=== PATIENT | male | born 1975 | race Caucasian/White ===

== ENCOUNTER 2016-09-16 09:53 | Emergency (ER) | payer SELFPAY ==
[2016-09-16] MEDS ORDERED: LIDOCAINE 1% 10 ML VIAL INJ ONE ×2 (10:09→10:55)
[2016-09-16 10:21] VITALS: BP 137/85; TEMP 96.7; O2SAT 98
--- NOTE | 2016-09-16 10:35 | RAD ---
EXAM DESCRIPTION: Foot,Left 2 Views CLINICAL HISTORY: 41 years, Male, distal plantar midfoot infxn ?foreign body? COMPARISON: None TECHNIQUE: AP/lateral of the left foot FINDINGS: There is no bone, joint, or soft tissue abnormality observed. There is no radiopaque foreign body. IMPRESSION: Negative Electronically signed by: Kyle George MD 09/16/2016 10:35 AM CDT
--- NOTE | 2016-09-16 10:42 | ED.PDOC ---
History of Present Illness - General Chief Complaint: Skin/Abrasion/Tear Stated Complaint: WOUND ON FOOT Time Seen by Provider: 09/16/16 09:54 Source: patient Exam Limitations: no limitations - History of Present Illness Initial Comments: the patient is a 41-year-old male presenting to the emergency room secondary to a small abscess formation on the plantar aspect of his left foot over the third metatarsal pad. It has been present for one week with increasing pain and erythema. No definite foreign body noted. No previous infections. He is not diabetic. He does wear work boots all day. No fevers. No drainage from the site. Timing/Duration: 1 week Severity: mild Improving Factors: nothing Worsening Factors: movement Associated Symptoms: denies symptoms Allergies/Adverse Reactions: Allergies NO KNOWN ALLERGY Allergy (Verified 10/28/15 04:47) Home Medications: Ambulatory Orders Sulfa/Trimeth 800/160 (Ds) Tab [Bactrim DS Tab] 1 ea PO BID #14 tab 09/16/16 Review of Systems - Review of Systems Constitutional: States: no symptoms reported EENTM: States: no symptoms reported Respiratory: States: no symptoms reported Cardiology: States: no symptoms reported Gastrointestinal/Abdominal: States: no symptoms reported Genitourinary: States: no symptoms reported Musculoskeletal: States: no symptoms reported Skin: States: see HPI Neurological: States: no symptoms reported Endocrine: States: no symptoms reported All other Systems: No Change from Baseline Past Medical History (General) - Patient Medical History Hx Seizures: No Hx Stroke: No Hx Dementia: No Hx Asthma: No Hx of COPD: No Hx Cardiac Disorders: No Hx Congestive Heart Failure: No Hx Pacemaker: No Hx Hypertension: No Hx Thyroid Disease: No Hx Diabetes: No Hx Gastroesophageal Reflux: No Hx Renal Disease: No Hx Cancer: No Hx of HIV: No Hx Hepatitis C: No Hx MRSA: Yes - Wound 2016 MRSA Source:: Wound - Vaccination History Hx Tetanus, Diphtheria Vaccination: Yes Hx Influenza Vaccination: No Hx Pneumococcal Vaccination: No Immunizations Up to Date: No - Social History Hx Tobacco Use: No Hx Chewing Tobacco Use: No Hx Alcohol Use: Yes - OCC Hx Substance Use: No - DENIES Hx Substance Use Treatment: No Hx Depression: No Hx Physical Abuse: No Hx Emotional Abuse: No Hx Suspected Abuse: No - Female History Patient : No Family Medical History - Family History Father Family History: Unknown Living Status: Still Living Hx Family Asthma: No Hx Family Congestive Heart Failure: No Hx Family Hypertension: No Hx Cardiac Disease: Yes Hx Family Diabetes: Yes Physical Exam - Physical Exam General Appearance: Alert, Comfortable, No apparent distress Eye Exam: bilateral normal Ears, Nose, Throat: hearing grossly normal, normal ENT inspection Neck: full range of motion Respiratory: no respiratory distress, no accessory muscle use Cardiovascular/Chest: normal peripheral pulses, no edema Peripheral Pulses: dorsalis pedis,right: 2+, dorsalis pedis,left: 2+, posterior tibialis,right: 2+, posterior tibialis,left: 2+ Rectal Exam: deferred Extremity: normal range of motion, no pedal edema, no calf tenderness, normal capillary refill, other - access to the plantar aspect of the left foot as described above Neurologic: no motor/sensory deficits, alert, normal mood/affect, oriented x 3 Skin Exam: normal color Comments: Vital Signs - 24 hr 09/16/16 10:17 Temperature 96.7 F L Pulse Rate [ 60 MONITOR] Respiratory 18 Rate Blood Pressure 137/85 [Left Arm] O2 Sat by Pulse 98 Oximetry Progress - Progress Progress: 09/16/16 10:42 the patient is a 41-year-old male presenting with a small abscess to the plantar aspect of his left foot. He does have mild surrounding cellulitis. X-ray shows no evidence of fracture, osteomyelitis, or foreign body. No free air. Risk and benefits of incision and drainage explained. Patient agrees to proceed. Wound is cleaned with hydrogen peroxide. 11 blade scalpel is used to make a 1 cm x 1 cm unroofing of the abscess. 1 cc of pus was obtained. Culture is performed. Exploration of the cavity shows no evidence of foreign body. Surrounding callus debrided with scalpel as well. Dressing was applied. The patient was given a dose of Bactrim and Rocephin. He will be placed on Bactrim twice daily for 7 days. He needs to take this medication with food. He needs to keep well hydrated. He needs to wash the wound at least twice daily with an antibacterial soap. he needs to keep the wound covered with a Band-Aid and triple antibiotic ointment. He needs to follow up with his primary care doctor on Thursday for reevaluation and culture results. Departure - Departure Clinical Impression: Abscess ICD-10 Supporting Text: eft foot, initial evaluation, with incision and drainage Disposition: Discharge to Home or Self Care Departure Forms: ED Discharge - Pt. Copy, Patient Portal Self Enrollment Instructions: DI for Skin Abscess Diet: regular diet Activity: increase activity as tolerated Prescriptions: Sulfa/Trimeth 800/160 (Ds) Tab [Bactrim DS Tab] 1 ea PO BID #14 tab Home Medications: Ambulatory Orders Sulfa/Trimeth 800/160 (Ds) Tab [Bactrim DS Tab] 1 ea PO BID #14 tab 09/16/16 Additional Instructions: the patient is a 41-year-old male presenting with a small abscess to the plantar aspect of his left foot. He does have mild surrounding cellulitis. X-ray shows no evidence of fracture, osteomyelitis, or foreign body. No free air. Wound is cleaned with hydrogen peroxide. 11 blade scalpel is used to make a 1 cm x 1 cm unroofing of the abscess. 1 cc of pus was obtained. Culture is performed. Exploration of the cavity shows no evidence of foreign body. Surrounding callus debrided with scalpel as well. Dressing was applied. The patient was given a dose of Bactrim and Rocephin. He will be placed on Bactrim twice daily for 7 days. He needs to take this medication with food. He needs to keep well hydrated. He needs to wash the wound at least twice daily with an antibacterial soap. he needs to keep the wound covered with a Band-Aid and triple antibiotic ointment. He needs to follow up with his primary care doctor on Thursday for reevaluation and culture results.
[2016-09-16] MEDS: cefTRIAXone SODIUM 1 GM VIAL IM ONE (10:57)
[2016-09-16] MEDS: SULFA/TRIMETH 800/160 (DS) TAB 1 EA TAB PO ONE (10:57)
[2016-09-16] MEDS ORDERED: NEOMYCIN-BACITRACIN-POLYMYXIN 0.9 GM UD TOP ONE (11:19)
== END 2016-09-16 11:24 | disposition home or self-care (01) ==
LOC: ER 09:53
DX: L02.612 Cutaneous abscess of left foot (principal); Z86.14 Personal history of Methicillin resistant Staphylococcus aureus infection
CPT/HCPCS: 73620; 87070; 87077; 87186; J0696

== ENCOUNTER 2016-09-17 08:31 | Emergency (ER) | payer SELFPAY ==
--- NOTE | 2016-09-17 09:07 | ED.PDOC ---
History of Present Illness - General Chief Complaint: Skin/Abrasion/Tear Stated Complaint: puncture wound Time Seen by Provider: 09/17/16 09:00 Source: patient Exam Limitations: no limitations - History of Present Illness Initial Comments: Edin Samuel 41 y/o male stated that he was in his friends house helping him to clean up one week ago felt stinging sensation on left foot noted little bleeding washed it with H2O2 and 3 days later noted gradual swelling got worse yesterday came to er incision and drainage done was given shot of rocephin and oral bactrim. stated adult Td upto date. Timing/Duration: week - one Severity: moderate Location: extremities Improving Factors: nothing Worsening Factors: movement Associated Symptoms: other - pain swelling left foot Allergies/Adverse Reactions: Allergies NO KNOWN ALLERGY Allergy (Verified 10/28/15 04:47) Home Medications: Ambulatory Orders Sulfa/Trimeth 800/160 (Ds) Tab [Bactrim DS Tab] 1 ea PO BID #14 tab 09/16/16 Ciprofloxacin [Cipro] 500 mg PO BID #20 tab 09/17/16 Review of Systems - Review of Systems Constitutional: States: no symptoms reported EENTM: States: no symptoms reported Respiratory: States: no symptoms reported Cardiology: States: no symptoms reported Gastrointestinal/Abdominal: States: no symptoms reported Genitourinary: States: no symptoms reported Musculoskeletal: States: no symptoms reported Skin: States: see HPI Neurological: States: no symptoms reported Endocrine: States: no symptoms reported Hematologic/Lymphatic: States: no symptoms reported Past Medical History (General) - Patient Medical History Hx Seizures: No Hx Stroke: No Hx Dementia: No Hx Asthma: No Hx of COPD: No Hx Cardiac Disorders: No Hx Congestive Heart Failure: No Hx Pacemaker: No Hx Hypertension: No Hx Thyroid Disease: No Hx Diabetes: No Hx Gastroesophageal Reflux: No Hx Renal Disease: No Hx Cancer: No Hx of HIV: No Hx Hepatitis C: No Hx MRSA: No MRSA Source:: Wound Surgical History: no surgical history - Vaccination History Hx Tetanus, Diphtheria Vaccination: Yes Hx Influenza Vaccination: No Hx Pneumococcal Vaccination: No Immunizations Up to Date: No - Social History Hx Tobacco Use: Yes Hx Chewing Tobacco Use: Yes Hx Alcohol Use: Yes Hx Substance Use: No Hx Substance Use Treatment: No Hx Depression: No Hx Physical Abuse: No Hx Emotional Abuse: No Hx Suspected Abuse: No - Activities of Daily Living Patient Lives Alone: No - family - Female History Patient is a Female of Child Bearing Age (10 -59 yrs old): No Patient : No Family Medical History - Family History Father Family History: No Known Living Status: Still Living Hx Family Asthma: No Hx Family Congestive Heart Failure: No Hx Family Hypertension: No Hx Cardiac Disease: Yes Hx Family Diabetes: Yes Physical Exam - Physical Exam General Appearance: Alert, No apparent distress Eyes, Ears, Nose, Throat Exam: PERRL/EOMI, normal ENT inspection, TMs normal Neck: non-tender, full range of motion, normal inspection Cardiovascular/Chest: normal peripheral pulses, regular rate, rhythm, no murmur Respiratory: chest non-tender, lungs clear, normal breath sounds, no respiratory distress Gastrointestinal/Abdominal: normal bowel sounds, non tender, soft, no organomegaly Back Exam: normal inspection, no CVA tenderness Extremity: normal range of motion, non-tender, normal inspection, no pedal edema , no calf tenderness Neurologic: alert, normal mood/affect, oriented x 3 Skin Exam: warm/dry, normal color Skin Problem Location: lower extremities - left foot Skin Character: erythema - left foot with area of i&D no drainage noted, swelling, tenderness Departure - Departure Clinical Impression: Infected puncture wound, Cellulitis of foot without toes, left Time of Disposition: 09:18 Disposition: Discharge to Home or Self Care Condition: Good Departure Forms: ED Discharge - Pt. Copy, Patient Portal Self Enrollment Instructions: DI for Puncture Wound Prescriptions: Ciprofloxacin [Cipro] 500 mg PO BID #20 tab Home Medications: Ambulatory Orders Sulfa/Trimeth 800/160 (Ds) Tab [Bactrim DS Tab] 1 ea PO BID #14 tab 09/16/16 Ciprofloxacin [Cipro] 500 mg PO BID #20 tab 09/17/16 Additional Instructions: Continue taking Bactrim DS with cipro Follow up with primary md 09/22 2016 patient to call for appoint ment,Elevate left leg 20 degrees at bedtime until better
[2016-09-17] MEDS ORDERED: levoFLOXacin 500MG IV 100 ML IVPB ONE (09:20)
[2016-09-17] MEDS: levoFLOXacin 500MG IV 500 MG in PREMIX BAG 1 BAG IVPB ONE (09:41)
[2016-09-17 09:56] VITALS: O2SAT 99
[2016-09-17] MEDS ORDERED: ACETAMINOPHEN 500 MG TAB ONE (10:38)
[2016-09-17] MEDS: ACETAMINOPHEN 500 MG TAB PO ONE (10:42)
[2016-09-17 10:47] VITALS: BP 127/59; TEMP 98.1
== END 2016-09-17 10:48 | disposition home or self-care (01) ==
LOC: ER 08:31
DX: S91.332A Puncture wound without foreign body, left foot, initial encounter (principal); L03.116 Cellulitis of left lower limb; Z87.891 Personal history of nicotine dependence; W26.9XXA Contact with unspecified sharp object(s), initial encounter

== ENCOUNTER 2017-02-16 08:53 | Inpatient (IN) | payer SELFPAY ==
[2017-02-16] MEDS ORDERED: ONDANSETRON ODT 8 MG TAB SL ONE (09:01)
[2017-02-16] MEDS ORDERED: ALUMINUM & MAGNESIUM HYDROXIDE 30 ML UD PO ONE (09:01)
[2017-02-16] MEDS ORDERED: SODIUM CHLORIDE 0.9% 1000ML 1,000 ML IVS ONE ×3 (09:01→23:30)
[2017-02-16] MEDS ORDERED: PANTOPRAZOLE SODIUM IV 40 MG VIAL IV ONE (09:01)
--- NOTE | 2017-02-16 09:32 | RAD ---
EXAM DESCRIPTION: Abdomen Series CLINICAL HISTORY: nv 2 day COMPARISON: None. FINDINGS: AP supine and upright views of the abdomen show a nonspecific, nonobstructive bowel gas pattern with no evidence for free intraperitoneal air. No air-filled dilated loops of small bowel are seen. No significant air-fluid levels are identified. No obvious organomegaly is seen. No abnormal calcifications are seen in the expected location of the renal collecting systems. Single view of the chest shows cardiac silhouette and pulmonary vasculature to be within normal limits. Lungs are normally aerated and clear. Linear radiopaque density overlying the left lower cardiac silhouette could represent residual wire from prior cardiac surgery versus overlapping density external to the patient. IMPRESSION: Nonspecific abdominal series Electronically signed by: Lucius Decker MD 02/16/2017 9:31 AM SITE RELIABILITY ENGINEER
[2017-02-16] MEDS ORDERED: POTASSIUM CHLORIDE INJ 40 MEQ 40 MEQ in SODIUM CHLORIDE 0.9% 250ML 250 ML IVPB ONE (10:09)
[2017-02-16] MEDS ORDERED: SODIUM CHLORIDE 0.9% 250ML 250 ML ONE ×2 (10:15→11:09)
[2017-02-16] MEDS ORDERED: POTASSIUM CHLORIDE 40mEq 20ML VIAL ONE (10:16)
[2017-02-16] MEDS ORDERED: AZITHROMYCIN IV 500 MG in SODIUM CHLORIDE 0.9% 250ML 250 ML IVPB ONE (10:31)
--- NOTE | 2017-02-16 10:34 | ED.PDOC ---
History of Present Illness - General Chief Complaint: GI Problem Stated Complaint: vomiting and diarrhea Time Seen by Provider: 02/16/17 08:59 Source: patient Exam Limitations: no limitations - History of Present Illness Initial Comments: The patient is a 41-year-old male presenting to the emergency room secondary to nausea vomiting and diarrhea for the last 48 hours. He has had a little bit of blood in the vomitus for the last 12-24 hours only. He has had some chest pain with throwing up only. He is feeling weak and tired. No previous episodes like this. no blood in the stool. This started when he went out camping this weekend. No syncope with questionable near syncope. No real abdominal pain except in the epigastric and left upper quadrant. No history of any liver dysfunction or pancreatitis. No history of any kidney stones or urinary tract infections. Severity: moderate Improving Factors: nothing Worsening Factors: eating Associated Symptoms: diaphoresis, loss of appetite, malaise, nausea/vomiting, weakness Allergies/Adverse Reactions: Allergies NO KNOWN ALLERGY Allergy (Verified 02/16/17 09:01) Home Medications: Ambulatory Orders NK [NK] 02/16/17 Review of Systems - Review of Systems Constitutional: States: malaise, weakness EENTM: States: no symptoms reported Respiratory: States: no symptoms reported Cardiology: States: no symptoms reported Gastrointestinal/Abdominal: States: see HPI Genitourinary: States: no symptoms reported Musculoskeletal: States: no symptoms reported Skin: States: no symptoms reported Neurological: States: no symptoms reported Endocrine: States: no symptoms reported All other Systems: No Change from Baseline Past Medical History (General) - Patient Medical History Hx Seizures: No Hx Stroke: No Hx Dementia: No Hx Asthma: No Hx of COPD: No Hx Cardiac Disorders: No Hx Congestive Heart Failure: No Hx Pacemaker: No Hx Hypertension: No Hx Thyroid Disease: No Hx Diabetes: No Hx Gastroesophageal Reflux: No Hx Renal Disease: No Hx Cancer: No Hx of HIV: No Hx Hepatitis C: No Hx MRSA: No MRSA Source:: Wound Surgical History: other - Vaccination History Hx Tetanus, Diphtheria Vaccination: Yes Hx Influenza Vaccination: No Hx Pneumococcal Vaccination: No - Social History Hx Tobacco Use: Yes Hx Chewing Tobacco Use: Yes Hx Alcohol Use: Yes Hx Substance Use: No Hx Substance Use Treatment: No Hx Depression: No Hx Physical Abuse: No Hx Emotional Abuse: No Hx Suspected Abuse: No - Female History Patient : No Family Medical History - Family History Father Family History: No Known Living Status: Still Living Hx Family Asthma: No Hx Family Congestive Heart Failure: No Hx Family Hypertension: No Hx Cardiac Disease: Yes Hx Family Diabetes: Yes Physical Exam - Physical Exam General Appearance: Alert, Ill Appearing Eye Exam: bilateral normal Ears, Nose, Throat: hearing grossly normal, normal ENT inspection, normal pharynx Neck: full range of motion, supple Respiratory: lungs clear, normal breath sounds, no respiratory distress, no accessory muscle use Cardiovascular/Chest: normal peripheral pulses, regular rate, rhythm, no edema Peripheral Pulses: radial,right: 2+, radial,left: 2+, dorsalis pedis,right: 2+, dorsalis pedis,left: 2+ Gastrointestinal/Abdominal: other - epigastric and left upper quadrant discomfort palpation. No rebound or peritoneal signs. No definite palpable mass. Rectal Exam: deferred Back Exam: normal inspection, no CVA tenderness Extremity: normal range of motion, non-tender, normal inspection, no pedal edema , slow capillary refill - orderline at around 2 seconds initially Neurologic: patient access coordinator II-XII nml as tested, no motor/sensory deficits, alert, oriented x 3 Skin Exam: pallor Comments: Vital Signs - 24 hr 02/16/17 02/16/17 02/16/17 08:53 09:40 10:27 Temperature 99.2 F Pulse Rate [ 92 H 84 77 pulse ox] Respiratory 22 20 20 Rate Blood Pressure 142/80 132/87 127/66 [Left Arm] O2 Sat by Pulse 99 97 97 Oximetry Progress - Progress Progress: 02/16/17 10:35 the patient's a 41-year-old male presenting to the emergency room secondary to 2 days of what appears to be a significant gastroenteritis and colitis. He does have significant dehydration. He is receiving IV fluids. He is receiving some IV potassium for hypokalemia. He is empirically being covered with IV azithromycin for now to cover for Salmonella Shigella and Campylobacter primarily. Stool culture still needs to be obtained. Urinalysis is still pending. A blood cultures being performed. He has tolerated Zofran well as far as nausea control. He has received a dose of Maalox and Protonix. He will need further IV fluid. He does have a significant leukocytosis as well as a significant lactic acidosis which goes along with the duration of the symptoms. He will need to have his liver function tests repeated. There is no elevation of alkaline phosphatase and no pain in the right upper quadrant indicate any biliary tract dysfunction at this time. If that changes then further specified evaluation may be warranted. no clinical evidence of sepsis at this time. admit for continuation of care. Patient is starting to feel better with his current therapy. - Results/Orders Results/Orders: Vital Signs - 24 hr 02/16/17 02/16/17 02/16/17 08:53 09:40 10:27 Temperature 99.2 F Pulse Rate [ 92 H 84 77 pulse ox] Respiratory 22 20 20 Rate Blood Pressure 142/80 132/87 127/66 [Left Arm] O2 Sat by Pulse 99 97 97 Oximetry 02/16/17 09:00 Telemetry .CONTINUOUS UA [URINALYSIS] Stat 02/16/17 09:30 AMYLASE Stat B-TYPE NATRIURETIC PEPTIDE/BNP Stat CARDIAC ENZYME GROUP Stat COMPLETE METABOLIC PROFILE Stat LIPASE Stat MAGNESIUM Stat THYROID STIMULATING HORMONE Stat 02/16/17 10:09 Potassium Chloride Inj 40 Meq 40 meq Sodium Chloride 0.9% 250Ml [NS 250ml] 250 ml IVPB ONCE 02/16/17 10:31 Azithromycin IV [Zithromax IV] 500 mg Sodium Chloride 0.9% 250Ml [NS 250ml] 250 ml IVPB ONCE 02/16/17 10:34 BLOOD CULTURE Stat STOOL CULTURE Stat Laboratory Results - last 24 hr 02/16/17 02/16/17 02/16/17 09:30 09:30 09:30 WBC 19.4 H RBC 5.50 Hgb 16.6 Hct 48.4 MCV 88.1 MCH 30.2 MCHC 34.3 RDW 13.4 Plt Count 304 MPV 6.7 L Absolute Neuts (auto) 16.60 H Absolute Lymphs (auto) 0.90 L Absolute Monos (auto) 1.80 H Absolute Eos (auto) 0.00 Absolute Basos (auto) 0.00 Neutrophils % 85.8 H Lymphocytes % 4.8 L Monocytes % 9.3 H Eosinophils % 0.0 L Basophils % 0.1 PT 14.3 H INR 1.270 PTT (SP) 26.8 Sodium 138 Potassium 3.1 L Chloride 98 L Carbon Dioxide 26 Anion Gap 17.1 BUN 33 H Creatinine 1.14 BUN/Creatinine Ratio 28.9 H Random Glucose 138 H Hemoglobin A1c Serum Osmolality 285.1 Lactic Acid Calcium 10.0 Magnesium 2.3 Total Bilirubin 1.2 H AST 76 H ALT 240 H Alkaline Phosphatase 91 Creatine Kinase 479 H* CK-MB (CK-2) 3.7 CK-MB (CK-2) % 0.77 Troponin I 0.03 B-Natriuretic Peptide 37.3 Serum Total Protein 9.4 H Albumin 5.0 Globulin 4.4 H Albumin/Globulin Ratio 1.1 Amylase 102 H Lipase 20 L 02/16/17 02/16/17 09:30 09:30 WBC RBC Hgb Hct MCV MCH MCHC RDW Plt Count MPV Absolute Neuts (auto) Absolute Lymphs (auto) Absolute Monos (auto) Absolute Eos (auto) Absolute Basos (auto) Neutrophils % Lymphocytes % Monocytes % Eosinophils % Basophils % PT INR PTT (SP) Sodium Potassium Chloride Carbon Dioxide Anion Gap BUN Creatinine BUN/Creatinine Ratio Random Glucose Hemoglobin A1c 5.1 Serum Osmolality Lactic Acid 3.8 H* Calcium Magnesium Total Bilirubin AST ALT Alkaline Phosphatase Creatine Kinase CK-MB (CK-2) CK-MB (CK-2) % Troponin I B-Natriuretic Peptide Serum Total Protein Albumin Globulin Albumin/Globulin Ratio Amylase Lipase Acute abdominal series appears fairly benign. No evidence of obstruction. No evidence of significant kidney stones. No evidence of perforation. No evidence of pneumonia. Departure - Departure Clinical Impression: Gastroenteritis, Dehydration, Hypokalemia Disposition: Admit Patient Home Medications: Ambulatory Orders NK [NK] 02/16/17 Decision To Admit - Decistion To Admit Decision to Admit Reason: Medical Nature Decision to Admit Date: 02/16/17 Decision to Admit Time: 10:41
--- NOTE | 2017-02-16 11:04 | HP ---
SUPERVISING PHYSICIAN: Yonny Henderson M.D. CHIEF COMPLAINT: Nausea, vomiting and diarrhea. HISTORY OF PRESENT ILLNESS: Mr. Samuel is a 41 year-old male patient that presented to the Emergency Department due to some nausea and vomiting for the last 48 hours. He had also noted that he had some small amount of blood in his emesis for the last 12 to 24 hours. He reports that this past weekend he went camping down by when he started having some abdominal pain, nausea and vomiting, and ended up spending most of the time in his tent. He denied any other contacts that were ill. While he was camping this weekend, he did note that he had drank approximately 7 beers on Thursday. He does note that he drinks fairly regularly on the weekends, but denies any excessive alcohol abuse. Laboratory studies on admission showed that he had a leukocytosis of 19,400 with a left shift. Chemistries showed that he was dehydrated with a BUN of 33, creatinine 1.14, potassium was low at 3.1. He also had a lactic acid that was elevated at 3.8 with liver enzymes that were also elevated with a total bilirubin of 1.2. AST was up to 76, ALT at 240 with alkaline phosphatase being normal. CPK was slightly elevated at 479. His pancreatic enzymes showed normal lipase with a slightly elevated amylase at 102. He was febrile with a temperature of 100.2, pulse 81, blood pressure 130/73, respirations 16, satting 99% on room air. He was started on antibiotics in the Emergency Department initially with Azithromycin with concerns for an enteric infection given that he had some diarrhea and a degree of leukocytosis. His abdominal x-ray prior to admission showed per radiology interpretation nonspecific abdominal series. He was given some normal saline and Dr. Henderson, Maria Fernanda R. physician, requested the patient be admitted for severe dehydration with metabolic acidosis and possible gastroenteritis. The patient is admitted in stable condition. PAST MEDICAL HISTORY: Unremarkable. PAST SURGICAL HISTORY: No major surgeries. CURRENT MEDICATIONS: No home medications listed. ALLERGIES: NO KNOWN DRUG ALLERGIES. FAMILY HISTORY: SOCIAL HISTORY: REVIEW OF SYSTEMS: CONSTITUTIONAL: General malaise, weakness, fever and chills. HEENT: No nasal congestion, headaches, sore throats, runny nose. RESPIRATORY: No shortness of breath or cough. CARDIOVASCULAR: No chest pains, palpitations or syncopal episodes. GASTROINTESTINAL: Noted in History of Present Illness. GENITOURINARY: No dysuria, hematuria or other urinary symptoms. NEUROLOGIC: He denies any headaches, syncopal episodes or any neurological deficits. PHYSICAL EXAMINATION: VITAL SIGNS: Temperature on admission was 100.2, pulse 81, blood pressure 110/ 47, respirations 20, satting 96% on room air. Weight 78.9 kg. GENERAL: On admission to the Medical/Surgical floor, the patient appears to be comfortably in no acute distress. He is unkempt. Appears ill-appearing. Somewhat dehydrated but he is alert and oriented times three. HEENT: Tympanic membranes are clear bilaterally. Oropharynx was pink with mucosal membranes being dry. NECK: Supple, non-tender with full range of motion. CHEST: Lungs were clear to auscultation without any rhonchi, wheezing or rales. CARDIOVASCULAR: Regular rate and rhythm without appreciable murmurs, gallops, or rubs. ABDOMEN: Some notable discomfort on palpation of the epigastric, right and left upper quadrant areas. No rebound tenderness. No peritoneal signs. Bowel sounds are present. EXTREMITIES: No clubbing, cyanosis or edema. NEUROLOGIC: Cranial nerves II-XII are grossly intact. Facial features were symmetrical. Extraocular movements are within normal limits. There is no notable motor or sensory deficits. He is alert and oriented times three. LABORATORY: CBC showed leukocytosis of 19,400 with hemoglobin 16.6, hematocrit 48.4 with platelet count 304,000. Differential did show a left shift. Coagulation studies showed a slightly elevated PT at 14.3 with an INR of 1.27 with a normal PTT at 26.8. Chemistries showed mild hypokalemia with potassium 3.1. Anion gap was 17, BUN 33, creatinine 1.14, glucose 138, hemoglobin A1c was 5.1. Lactic acid initially was 3.8, magnesium 2.3. Liver functions showed a slightly elevated bilirubin at 1.2 as well as elevation of AST at 76 and ALT at 240. CPK was elevated at 479, troponin was normal at 0.03. TSH was low at 0.28. Amylase and lipase showed elevation of amylase at 102 but normal lipase at 20. Urinalysis showed 100 protein with 80 of ketones. Otherwise within normal limits. Urine drug screen showed positive for cannabinoids but negative for other substances tested. MICROBIOLOGY: Blood cultures times 2 are pending. RADIOLOGY: Initially he had an abdominal x-ray in the Emergency Department and per radiology interpretation showed nonspecific abdominal series. After admission to the Medical/Surgical floor, a CT of the abdomen and pelvis with contrast was completed and per radiology interpretation there was no CT evidence of acute appendicitis. Gallbladder, pancreas, spleen, adrenal glands, kidneys, bladder and prostate gland were found unremarkable. ASSESSMENT: 1. Metabolic acidosis with elevated lactic acid with concerns for acute pancreatitis. 2. Elevated liver functions unknown etiology with CT of abdomen showing unremarkable liver. 2. Acute dehydration, moderate with electrolyte imbalance to include hypokalemia with likely with nauseas and vomiting with likely etiology secondary to gastroenteritis needing to rule out acute pancreatitis with stool cultures and stool workup pending. 3. Leukocytosis with febrile illness secondary to #1 with some demargination due to pain and nausea and vomiting. 4. Electrolyte imbalance with hypokalemia secondary to persistent nausea and vomiting with some diarrhea. 5. Persistent nausea and vomiting secondary to #1. PLAN: The patient will be admitted to the hospital for initiation of IV fluids to assist in rehydration and fluid management. This will be followed-up with maintenance fluid of D5 half normal saline with 20 of potassium to run at 150 an hour after a second liter bolus of saline. He was also given a K rider in the Emergency Department. This will be rechecked in the morning. I will go ahead and start him on Levaquin given the degree of discomfort on palpation. He will be NPO for bowel rest. There is a concerns for early pancreatitis given the degree of leukocytosis, fever, abdominal pain along with a slightly elevated amylase with the patient having a history of recent binge drinking. Will repeat labs in [facility] to include CBC, CMP, Amylase and Lipase. If liver functions are persistently elevated after adequte fluid resuscitation willl look doing a liver Ultrasound and serum hepatitis panel . Will anticipate length of stay to be at least 2 to 3 days until clinically stabilized. Will plan to monitor and treat appropriately. #[id number] [facility]
[2017-02-16] MEDS ORDERED: AZITHROMYCIN IV 500 MG VIAL IVPB ONE (11:09)
[2017-02-16] MEDS ORDERED: ONDANSETRON INJ 4 MG/2 ML VIAL IV PRN (13:01)
[2017-02-16] MEDS ORDERED: SODIUM CHLORIDE 0.9% 1000ML 1,000 ML ONE ×2 (13:09→23:29)
[2017-02-16] MEDS ORDERED: IV SET AND CAP CHANGE INJ INJ SCH (13:30)
--- NOTE | 2017-02-16 13:46 | CT ---
Study: CT abdomen and pelvis. Indication: RLQ and RUQ pain with Leukocytosis Technique: CT of the abdomen and pelvis obtained without intravenous contrast. This exam was performed according to our departmental dose-optimization program, which includes automated exposure control, adjustment of the mA and/or kV according to patient size and/or use of iterative reconstruction technique. Comparison: None. Findings: Lower chest, liver, gallbladder, pancreas, spleen, adrenal glands, kidneys, bladder, and prostate gland unremarkable. Stomach, small bowel, colon, and appendix unremarkable. No free fluid. No free air. No pathologically enlarged lymphadenopathy. Atherosclerosis aorta. No acute osseous abnormality. Impression: No CT evidence of acute appendicitis. Atherosclerosis aorta. Electronically signed by: Johnathan Bradley MD 02/16/2017 1:44 PM [employer]
[2017-02-16] MEDS: MORPHINE SULFATE INJ 10 MG/ML VIAL IV PRN ×3 (14:08→23:41)
[2017-02-16] MEDS: levoFLOXacin 750MG IV 750 MG in PREMIX BAG 1 BAG IVPB SCH (15:20)
[2017-02-16] MEDS: KCL 20MEQ/D5 1/2NS 1,000 ML IVS PRN (16:54)
[2017-02-16] MEDS: SODIUM CHLORIDE 0.9% (FLUSH) 10 ML SYG IV PRN ×2 (19:34→23:40)
--- NOTE | 2017-02-16 20:14 | PCM.CORE ---
Physician DVT/VTE - Nurse DVT Assessment & Total Each Risk Factor Represents 3 Points: Medical PT with Hx of [place], CHF, Severe infection/sepsis Each Risk Factor Represents 1 Point: Age 41-60 Each Risk Factor is 1 Point: Obesity (BMI >25) DVT Assessment Score: 5 - 5 or more Very High Risk Treatments: Early Ambulation *, Sequential Compression Device Pharmacological: Enoxaparin 40mg SQ Daily
[2017-02-16] MEDS: ENOXAPARIN SODIUM 40 MG/0.4 ML SYG SUBCU SCH (20:45)
[2017-02-16] MEDS: BENZOCAINE-MENTH LOZ (CEPACOL) 1 EA LOZ MT PRN (20:48)
[2017-02-17] MEDS: KCL 20MEQ/D5 1/2NS 1,000 ML IVS PRN ×4 (01:11→23:04)
[2017-02-17] MEDS: SODIUM CHLORIDE 0.9% (FLUSH) 10 ML SYG IV PRN (04:11)
[2017-02-17] MEDS: MORPHINE SULFATE INJ 10 MG/ML VIAL IV PRN ×5 (04:12→22:06)
[2017-02-17] MEDS ORDERED: LIDOCAINE VIS-MYLANTA 30 ML UD PO ONE (11:19)
[2017-02-17] MEDS: BENZOCAINE-MENTH LOZ (CEPACOL) 1 EA LOZ MT PRN (12:18)
[2017-02-17] MEDS: levoFLOXacin 750MG IV 750 MG in PREMIX BAG 1 BAG IVPB SCH (12:19)
[2017-02-17] MEDS: ENOXAPARIN SODIUM 40 MG/0.4 ML SYG SUBCU SCH (20:39)
[2017-02-18] MEDS: MORPHINE SULFATE INJ 10 MG/ML VIAL IV PRN ×3 (02:06→10:18)
[2017-02-18] MEDS: SODIUM CHLORIDE 0.9% (FLUSH) 10 ML SYG IV PRN ×2 (02:06→06:32)
[2017-02-18] MEDS: KCL 20MEQ/D5 1/2NS 1,000 ML IVS PRN ×2 (05:18→11:57)
--- NOTE | 2017-02-18 09:10 | PN ---
DATE: 02-17-17 SUPERVISING PHYSICIAN: Yonny Henderson MD SUBJECTIVE: The patient continues to have very low output, still getting aggressive fluid resuscitation. He has had well over 5 liters. He notes that his abdominal pain is no longer present, he is just having the left gastric discomfort but no nausea. He was able to tolerate a clear liquid diet today. He remains afebrile and remains on Levaquin. OBJECTIVE: VITAL SIGNS: Temperature 99, pulse 58, blood pressure 142/85, respirations 16, saturation 96% on room. I&O: positive balance of 740 with 5670 in, 900 out, weight 80.2 kg. CHEST: Lungs are clear to auscultation bilaterally. HEART: Regular rate and rhythm. ABDOMEN: Soft, non-tender, positive bowel sounds, just some mild discomfort over the epigastrium. EXTREMITIES: No cyanosis, clubbing, or edema. NEUROLOGIC: Alert and oriented x3. LABORATORY: White count is down to 11,900, hemoglobin 13,8, hematocrit 40.7 with platelet count at 172,000, differential is no longer showing a significant left shift. Chemistries show normal electrolytes with sodium now at 138, potassium 3.9, BUN 14, creatinine 0.72, calcium down to 8.4, lactic acid down to 1.1. Liver functions continue to show elevated of ALT but AST is normalized. ALT is at 129 compared to 240. Lipase and amylase are now normalized. MICROBIOLOGY: Blood cultures remain negative at 24 hours. RADIOLOGY: No studies available for review. ASSESSMENT: 1. Metabolic acidosis with elevated lactic acid with underlying severe dehydration, now showing normal pancreatic enzymes, normalizing liver enzymes after aggressive fluid resuscitation but continues to have low output. 2. Elevated liver functions felt to be secondary to underlying dehydration with CT of abdomen showing unremarkable findings of the liver. 3. Acute dehydration, moderate with electrolyte imbalance to include hypokalemia secondary to nausea and vomiting, etiology more likely sedimentation to a gastroenteritis versus gastritis. No evidence of acute pancreatitis with stool culture and stool studies pending.. 4. Leukocytosis with febrile illness secondary to #1 with some demargination due to pain and dehydration and nausea and vomiting improved with IV fluids. 5. Electrolyte imbalance with hypokalemia secondary to persistent nausea and vomiting with diarrhea.improved with IV fluids. 6. Mild epigastric pain likely secondary to gastritis sedimentation to persistent nausea and vomiting secondary to #1 prior to admission showing improvement with fluids. PLAN: Will continue with aggressive fluid management today and watch his output closely. He will remain on Levaquin at least for another 24 hours until he normalizes his white count. We will advance his diet today to clear liquids and if he tolerates this will change to a full diet in the morning. I will try GI cocktail to see if this will help with the gastric pain. He is on Protonix, will continue with that ant continue to monitor closely. No evidence of hepatitis, therefore, I did not do a hepatitis panel. Certainly, he could followup in an outpatient setting with his primary care physician to do followup tests. Will anticipate hopefully discharging him tomorrow. Until the , we will continue to monitor and treat appropriately. #[id number] [facility]
[2017-02-18] MEDS ORDERED: HYDROcodone 5MG/APAP 325MG 1 EA TAB PO PRN (10:20)
[2017-02-18] MEDS: levoFLOXacin 750MG IV 750 MG in PREMIX BAG 1 BAG IVPB SCH (13:45)
--- NOTE | 2017-02-18 16:56 | DS ---
SUPERVISING PHYSICIAN: Yonny Henderson M.D. DISCHARGE DIAGNOSIS: 1. Metabolic acidosis with elevated lactic acid and underlying severe dehydration now showing normal pancreatic enzymes, normalizing liver enzymes after aggressive fluid resuscitation and now normalized urine output. 2. Elevated liver functions felt to be secondary to underlying dehydration with CT of the abdomen showing unremarkable findings of the liver. 3. Acute dehydration with electrolyte imbalance to include hypokalemia secondary to nausea and vomiting most likely due to gastroenteritis versus gastritis. No evidence of acute pancreatitis with stool culture and stool studies pending. 4. Leukocytosis with febrile illness secondary to #1 with some demargination due to pain, dehydration, nausea and vomiting improved with IV fluids. 5. Electrolyte imbalance with hypokalemia secondary to persistent nausea and vomiting with diarrhea that has improved with IV fluids. 6. Mild epigastric pain likely secondary to gastritis showing improvement with fluids. HISTORY OF PRESENT ILLNESS: This is a 41 year-old male patient who presented to the Emergency Department due to some nausea and vomiting for the prior 48 hours. He had some blood in his emesis. He also reported this past weekend he went camping and had some severe abdominal pain, nausea and vomiting, and ended up spending most of the time in a tent. He denied any ill contacts. He drank approximately 7 beers on Thursday. He does drink fairly regularly on the weekend , but denies any excessive alcohol abuse. Laboratory studies on admission showed leukocytosis of 19,400 with a left shift. Chemistries showed that he was dehydrated with a BUN of 33, creatinine 1.14, potassium 3.1, lactic acid was elevated at 3.8. Liver enzymes were also elevated with a total bilirubin of 1.2, AST was up to 76, ALT at 240, alkaline phosphatase was within normal limits. CPK was slightly elevated at 479. Pancreatic enzymes show a normal lipase and slightly elevated amylase at 102. He was febrile with a temperature of 100.2, pulse 81, blood pressure 130/73, respirations 16. He was satting 99% on room air. He was started initially on antibiotics in the Emergency Room on Azithromycin. There were concerns for an enteric infection given that he had some diarrhea and a degree of leukocytosis. His abdominal x-ray prior to admission showed normal abdominal series. He was given multiple liters of normal saline and the patient was admitted for severe dehydration with metabolic acidosis and possible gastroenteritis. HOSPITAL COURSE: He was admitted to the floor and his antibiotics were changed to Levaquin. His preliminary blood cultures showed no growth. WBCs normalized to 6.9 with neutrophils of 54.5. Lactic acid came down to 1.1. Chemistries were basically within normal limits with an improved ALT to 99. BUN went down as low as 1 and his amylase and lipase normalized at 53 and 27 respectively. He was transitioned off of morphine for pain and transitioned onto [place]. He has tolerated his diet without any issues and he can be discharged home today in stable condition. DISCHARGE PLAN: The patient will be discharged home in stable condition. He is to resume his previous diet as well as his previous activity, but he may want to start on a bland diet initially. I have sent him home on 7 additional days of Levaquin. He has a followup appointment with Dr. Camejo at [facility] on 03/02/17 at 2:00 PM. I have advised him to stop smoking as well as stop smoking marijuana. He also should limit the amount of alcohol he drinks. If he has any further problems he can return to the hospital or call [facility] for further problems. DISCHARGE MEDICATIONS: 1. Levaquin. Dr. Henderson is the collaborating physician available for consultation. #[id number] [facility]
[2017-02-18 17:15] VITALS: BP 130/71; TEMP 97.8; O2SAT 98
== END 2017-02-18 17:08 | disposition home or self-care (01) | DRG 641 ==
LOC: ER 08:53 → MS 11:03 → OBSVTOIN 11:03
PROVIDERS: ADMIT Nurse Practitioner Family; ATTEND Nurse Practitioner Acute Care
DX: E86.0 Dehydration (principal); K92.0 Hematemesis; E87.2 Acidosis; E87.6 Hypokalemia; K52.9 Noninfective gastroenteritis and colitis, unspecified; K29.70 Gastritis, unspecified, without bleeding; F12.90 Cannabis use, unspecified, uncomplicated

== ENCOUNTER 2017-07-19 11:52 | Emergency (ER) | payer SELFPAY ==
[2017-07-19 12:17] VITALS: BP 143/80; O2SAT 99
[2017-07-19] MEDS ORDERED: LIDOCAINE 1% 10 ML VIAL INJ ONE ×2 (12:20→12:31)
--- NOTE | 2017-07-19 12:22 | ED.PDOC ---
History of Present Illness - General Chief Complaint: Skin/Abrasion/Tear Stated Complaint: infection to left arm Time Seen by Provider: 07/19/17 12:20 Source: patient, RN notes reviewed Exam Limitations: no limitations Additional Information: 41 YEAR OLD SU[employer] PRESENTS WITH PAINFUL SWELLING IN THE MID LEFT FOREARM ONSET 4 DAYS AGO HE HAS FEW BITE LAU FROM [employer] HE IS NOT A DIABETIC NOT A IVDA - History of Present Illness Timing/Duration: getting worse Severity: moderate Improving Factors: nothing Associated Symptoms: denies symptoms Allergies/Adverse Reactions: Allergies NO KNOWN ALLERGY Allergy (Verified 02/16/17 09:01) Home Medications: Ambulatory Orders Acetamin W/Cod #3 Tab [Tylenol w/CODEINE #3] 1 ea PO Q6HR PRN #40 tab 07/19/17 Sulfa/Trimeth 800/160 (Ds) Tab [Bactrim DS Tab] 1 ea PO Q12HR #20 tab 07/19/17 Review of Systems - Review of Systems Constitutional: States: no symptoms reported EENTM: States: no symptoms reported Respiratory: States: no symptoms reported Cardiology: States: no symptoms reported Gastrointestinal/Abdominal: States: no symptoms reported Genitourinary: States: no symptoms reported Skin: States: see HPI Neurological: States: no symptoms reported Endocrine: States: no symptoms reported, excessive sweating Hematologic/Lymphatic: States: no symptoms reported Past Medical History (General) - Patient Medical History Hx Seizures: No Hx Stroke: No Hx Dementia: No Hx Asthma: No Hx of COPD: No Hx Cardiac Disorders: No Hx Congestive Heart Failure: No Hx Pacemaker: No Hx Hypertension: No Hx Thyroid Disease: No Hx Diabetes: No Hx Gastroesophageal Reflux: No Hx Renal Disease: No Hx Cancer: No Hx of HIV: No Hx Hepatitis C: No Hx MRSA: No MRSA Source:: Wound - Vaccination History Hx Tetanus, Diphtheria Vaccination: Yes Hx Influenza Vaccination: No Hx Pneumococcal Vaccination: No - Social History Hx Tobacco Use: Yes Hx Chewing Tobacco Use: Yes Hx Alcohol Use: No Hx Substance Use: No Hx Substance Use Treatment: No Hx Depression: No Hx Physical Abuse: No Hx Emotional Abuse: No Hx Suspected Abuse: No - Female History Patient : No Family Medical History - Family History Father Family History: No Known Living Status: Still Living Hx Family Asthma: No Hx Family Congestive Heart Failure: No Hx Family Hypertension: No Hx Cardiac Disease: Yes Hx Family Diabetes: Yes Physical Exam - Physical Exam General Appearance: Alert, Comfortable Eye Exam: bilateral normal Ears, Nose, Throat: hearing grossly normal, normal ENT inspection, normal pharynx Neck: non-tender, full range of motion, supple Respiratory: chest non-tender, lungs clear, normal breath sounds, no respiratory distress Cardiovascular/Chest: normal peripheral pulses, regular rate, rhythm, no edema Gastrointestinal/Abdominal: normal bowel sounds, non tender, soft, no organomegaly Back Exam: normal inspection, no CVA tenderness, no vertebral tenderness, CVA tenderness (R) Extremity: normal range of motion, non-tender Skin Exam: normal color - ABSCESS LEFT FOREARM 3 X 4 CM FLUCTUANT TENDER NEEDS I & D Procedures - Incision and Drainage #1 Site: LEFT FOREARM Procedure and Prep: betadine prep, gauze wick placed, irrigated, wound culture collected Blade Size: 11 Procedure Comments: 1% PLAIN LIDOCAINE WAS USED FOR LOCAL ANESTHESIA. 11 SCALPEL BLADE 1 CM INCISION WAS MADE AND 5 CC OF PUS RELEASED WOUND WAS PACKED WITH 1/2 INCH IODOFORM GAUZE. TOLERATED PROCEDURE WELL Departure - Departure Clinical Impression: Abscess Time of Disposition: 13:08 Disposition: Discharge to Home or Self Care Condition: Good Departure Forms: ED Discharge - Pt. Copy, Patient Portal Self Enrollment Instructions: DI for Abrasion Prescriptions: Acetamin W/Cod #3 Tab [Tylenol w/CODEINE #3] 1 ea PO Q6HR PRN #40 tab PRN Reason: Mild To Moderate Pain Sulfa/Trimeth 800/160 (Ds) Tab [Bactrim DS Tab] 1 ea PO Q12HR #20 tab Home Medications: Ambulatory Orders Acetamin W/Cod #3 Tab [Tylenol w/CODEINE #3] 1 ea PO Q6HR PRN #40 tab 07/19/17 Sulfa/Trimeth 800/160 (Ds) Tab [Bactrim DS Tab] 1 ea PO Q12HR #20 tab 07/19/17 Comments: PACKING NEED TO COME OUT IN 2 DAYS PLEASE SEE YOUR PCP OR RETURN IF SYMPTOMS WORSEN
[2017-07-19] MEDS ORDERED: IODOFORM PACKING 1/2 INCH 1 EA BTTL TOP ONE (13:01)
== END 2017-07-19 13:17 | disposition home or self-care (01) ==
LOC: ER 11:52
DX: L02.414 Cutaneous abscess of left upper limb (principal); Z87.891 Personal history of nicotine dependence

== ENCOUNTER 2018-07-27 11:09 | Emergency (ER) | payer SELFPAY ==
[2018-07-27] MEDS ORDERED: MECLIZINE HCL 12.5 MG TAB PO ONE (11:28)
[2018-07-27] MEDS ORDERED: ACETAMINOPHEN-CAFF-BUTALBITAL 1 EA TAB PO PRN (11:28)
[2018-07-27 11:29] VITALS: TEMP 98.1
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
--- NOTE | 2018-07-27 12:50 | CT ---
EXAM DESCRIPTION: Cervical Spine CLINICAL HISTORY: head injury, neck pain COMPARISON: None TECHNIQUE: Axial noncontast CT of the cervical spine with coronal and sagittal reformats. This exam was performed according to our departmental dose-optimization program, which includes automated exposure control, adjustment of the mA and/or kV according to patient size and/or use of iterative reconstruction technique. FINDINGS: Cervical vertebral body heights are maintained. Straightening of the normal cervical lordosis is seen with trace retrolisthesis of C5 on C6. No acute fracture or posttraumatic positional abnormality of the cervical spine is seen. Mild diffuse disc space narrowing is seen at C6-7 and to a lesser degree at C5-6 with left greater than right uncovertebral joint disc osteophytic ridging resulting in moderate left and mild right foraminal encroachment from C5 through C7. The visualized skull base is unremarkable. Mild calcifications of the carotid bulb are seen bilaterally. Visualized lung apices are unremarkable. The neck soft tissues are otherwise unremarkable. Mild spinal canal stenosis is seen at C5-6 and C6-7.. IMPRESSION: No CT evidence of acute fracture or posttraumatic positional abnormality of the cervical spine. Mild to moderate disc degenerative changes from C5 through C7 is seen contributing to mild spinal canal stenosis and left greater than right foraminal encroachment. Straightening of the normal cervical lordosis could be secondary to patient positioning or muscle spasm. Electronically signed by: Lucius Decker MD 07/27/2018 12:47 PM CDT
--- NOTE | 2018-07-27 12:52 | CT ---
EXAM DESCRIPTION: Head CLINICAL HISTORY: head injury COMPARISON: None available TECHNIQUE: Contiguous axial images through the head were obtained without intravenous contrast administration. Sagittal and coronal reconstructions were reviewed. FINDINGS: Mild diffuse cortical volume loss is identified. No evidence of acute major vascular territorial infarct or intraparenchymal hemorrhage. No intra-axial or extra-axial fluid collections are identified. The ventricles and cisterns appear normal in caliber. The sella and suprasellar regions appear normal. The structures of the posterior fossa are intact. The globes are intact bilaterally. The visualized paranasal sinuses and mastoid air cells are well-aerated. Review of the bones demonstrates no gross instability. IMPRESSION: No CT evidence of acute intracranial process. This exam was performed according to our departmental dose-optimization program, which includes automated exposure control, adjustment of the mA and/or kV according to patient size and/or use of iterative reconstruction technique. Electronically signed by: No Calderon MD 07/27/2018 12:49 PM CDT
[2018-07-27 13:19] VITALS: BP 143/97; O2SAT 100
== END 2018-07-27 13:20 | disposition home or self-care (01) ==
LOC: ER 11:09
DX: G44.309 Post-traumatic headache, unspecified, not intractable (principal); F07.81 Postconcussional syndrome; S16.1XXA Strain of muscle, fascia and tendon at neck level, initial encounter; Y04.0XXA Assault by unarmed brawl or fight, initial encounter; Z87.891 Personal history of nicotine dependence; Y92.9 Unspecified place or not applicable

== ENCOUNTER 2018-11-24 14:37 | Emergency (ER) | payer SELFPAY ==
[2018-11-24] MEDS ORDERED: SUCRALFATE 1 GM/10 ML 1 GM UD PO ONE (15:05)
[2018-11-24] MEDS ORDERED: ALUM & MAG HYDROX-SIMETHICONE 30 ML, LIDOCAINE VISCOUS 2% 15 ML PO ONE ×2 (15:05)
[2018-11-24] MEDS ORDERED: ONDANSETRON ODT 8 MG TAB SL ONE (15:05)
[2018-11-24] MEDS ORDERED: SODIUM CHLORIDE 0.9% 1000ML 1,000 ML IVS ONE (15:05)
[2018-11-24] MEDS ORDERED: ALUM & MAG HYDROX-SIMETHICONE 30 ML UD ONE (15:43)
[2018-11-24] MEDS ORDERED: LIDOCAINE HCL 2% (MOUTH-THROAT) 15 ML UD ONE (15:43)
--- NOTE | 2018-11-24 16:19 | ED.PDOC ---
History of Present Illness - General Chief Complaint: General Stated Complaint: Pt overheated thursday, nausea, tired, weak Time Seen by Provider: 11/24/18 15:00 Source: patient Exam Limitations: no limitations - History of Present Illness Initial Comments: the patient's a 43-year-old male presenting to the emergency room secondary to symptoms of persistent gastritis. 3 days ago the patient got markedly overheated and dehydrated at work. He had significant diffuse muscle cramps along with abdominal cramping and nausea and vomiting that continued for about a day. He was feeling better yesterday afternoon so he decided to go back to work this morning. After less than an hour or 2 at work he started having abdominal burning and cramping again as well as some nausea. No chest pain or shortness of breath. No syncope. He did have some dizziness. He does drink some alcohol daily. Timing/Duration: other - 3 days Severity: moderate Improving Factors: nothing Worsening Factors: nothing Associated Symptoms: diaphoresis, loss of appetite, malaise, nausea/vomiting, weakness Allergies/Adverse Reactions: Allergies NO KNOWN ALLERGY Allergy (Verified 07/27/18 11:23) Home Medications: Ambulatory Orders Ftyxcvxnlktnr-Avqd-Lwlybnvkoc [Fioricet] 1 - 2 ea PO Q6HR PRN #20 tab 07/27/18 Ibuprofen 800 mg PO Q8HR PRN #30 tab 07/27/18 Meclizine HCl [Meclizine 25] 50 mg PO Q6HRS PRN #20 tab 07/27/18 Famotidine 20 mg PO DAILY #30 tab 11/24/18 Ondansetron Odt [Zofran ODT] 4 mg PO Q8HR PRN #5 tab 11/24/18 Sucralfate Tab [Carafate Tab] 1 gm PO QID #60 tab 11/24/18 Review of Systems - Review of Systems Constitutional: States: malaise EENTM: States: no symptoms reported Respiratory: States: no symptoms reported Cardiology: States: no symptoms reported Gastrointestinal/Abdominal: States: nausea, vomiting Genitourinary: States: no symptoms reported Musculoskeletal: States: see HPI Skin: States: no symptoms reported Neurological: States: see HPI, headache Endocrine: States: excessive sweating All other Systems: No Change from Baseline Past Medical History (General) - Patient Medical History Hx Seizures: No Hx Stroke: No Hx Dementia: No Hx Asthma: No Hx of COPD: No Hx Cardiac Disorders: No Hx Congestive Heart Failure: No Hx Pacemaker: No Hx Hypertension: No Hx Thyroid Disease: No Hx Diabetes: No Hx Gastroesophageal Reflux: No Hx Renal Disease: No Hx Cancer: No Hx of HIV: No Hx Hepatitis C: No Hx MRSA: No MRSA Source:: Wound Surgical History: other - Vaccination History Hx Tetanus, Diphtheria Vaccination: Yes Hx Influenza Vaccination: No Hx Pneumococcal Vaccination: No - Social History Hx Tobacco Use: Yes Hx Chewing Tobacco Use: Yes Hx Alcohol Use: Yes Hx Substance Use: No Hx Substance Use Treatment: No Hx Depression: No Hx Physical Abuse: No Hx Emotional Abuse: No Hx Suspected Abuse: No - Female History Patient is a Female of Child Bearing Age (10 -59 yrs old): No Patient : No Family Medical History - Family History Father Family History: No Known Living Status: Still Living Hx Family Asthma: No Hx Family Congestive Heart Failure: No Hx Family Hypertension: No Hx Cardiac Disease: Yes Hx Family Diabetes: Yes Physical Exam - Physical Exam General Appearance: Alert, No apparent distress Eye Exam: bilateral normal Ears, Nose, Throat: hearing grossly normal, normal ENT inspection Neck: full range of motion, supple Respiratory: lungs clear, normal breath sounds, no respiratory distress, no accessory muscle use Cardiovascular/Chest: normal peripheral pulses, regular rate, rhythm, no edema Peripheral Pulses: radial,right: 2+, radial,left: 2+, dorsalis pedis,right: 2+, dorsalis pedis,left: 2+ Gastrointestinal/Abdominal: soft, other - epigastric discomfort palpation. No palpable mass. No rebound or peritoneal signs. 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 His primary symptom at this point is persistent gastritis. He did receive a liter of IV fluids. He is going to be placed on Carafate and famotidine for the next 2 weeks. He needs to brain picker some liquid Maalox or Mylanta and keep this with him. He does need to increase his fluid intake. He does have a very mild hepatitis as a result of the heat exhaustion. He does need to minimize alcohol intake for that reason for the next few weeks as well. He does need to have repeat lab work done and about 3 weeks to check on his liver again. He has been warned that he may not tolerate heat very well for the next few weeks while he is recovering from heat exhaustion. ER warnings were given. Follow-up with primary care doctor in a few weeks. He will be written for Zofran for as needed use to control vomiting. - Results/Orders Results/Orders: Laboratory Results - last 24 hr 11/24/18 11/24/18 11/24/18 15:19 15:19 15:19 WBC 6.1 RBC 4.21 L Hgb 13.4 L Hct 38.6 L MCV 91.5 MCH 31.9 H MCHC 34.8 RDW 14.8 H Plt Count 235 MPV 5.9 L Absolute Neuts (auto) 4.30 Absolute Lymphs (auto) 1.00 Absolute Monos (auto) 0.80 Absolute Eos (auto) 0.00 Absolute Basos (auto) 0.10 Neutrophils % 70.4 Lymphocytes % 15.9 L Monocytes % 12.6 H Eosinophils % 0.2 L Basophils % 0.9 Sodium 133 L Potassium 3.9 Chloride 93 L Carbon Dioxide 28 Anion Gap 15.9 BUN 15 Creatinine 0.80 BUN/Creatinine Ratio 18.8 Random Glucose 100 Serum Osmolality 267.3 L Calcium 9.1 Magnesium 1.7 L Total Bilirubin 0.5 AST 101 H ALT 103 H Alkaline Phosphatase 115 Creatine Kinase 249 H* CK-MB (CK-2) 4.2 Troponin I < 0.02 Serum Total Protein 7.9 Albumin 3.8 Globulin 4.1 H Albumin/Globulin Ratio 0.9 L Amylase 57 Lipase 30 Departure - Departure Clinical Impression: Hepatitis, Dehydration Heat exhaustion Qualifiers: Encounter type: initial encounter Qualified Code(s): T67.5XXA - Heat exhaustion, unspecified, initial encounter Gastritis Qualifiers: Gastritis type: other gastritis Chronicity: acute Gastritis bleeding: without bleeding Qualified Code(s): K29.00 - Acute gastritis without bleeding Disposition: Discharge to Home or Self Care Condition: Fair Departure Forms: ED Discharge - Pt. Copy, Patient Portal Self Enrollment Instructions: Heat Exhaustion and Heat Stroke (DC), Gastritis (DC) Diet: bland diet Activity: increase activity as tolerated Prescriptions: Ondansetron Odt [Zofran ODT] 4 mg PO Q8HR PRN #5 tab PRN Reason: Nausea--Moderate Famotidine 20 mg PO DAILY #30 tab Sucralfate Tab [Carafate Tab] 1 gm PO QID #60 tab Home Medications: Ambulatory Orders Odibcbreienuz-Cken-Fueqfkuhul [Fioricet] 1 - 2 ea PO Q6HR PRN #20 tab 07/27/18 Ibuprofen 800 mg PO Q8HR PRN #30 tab 07/27/18 Meclizine HCl [Meclizine 25] 50 mg PO Q6HRS PRN #20 tab 07/27/18 Famotidine 20 mg PO DAILY #30 tab 11/24/18 Ondansetron Odt [Zofran ODT] 4 mg PO Q8HR PRN #5 tab 11/24/18 Sucralfate Tab [Carafate Tab] 1 gm PO QID #60 tab 11/24/18 Additional Instructions: the patient is a 43-year-old male suffering from sequela of heat exhaustion. His primary symptom at this point is persistent gastritis. He did receive a liter of IV fluids. He is going to be placed on Carafate and famotidine for the next 2 weeks. He needs to brain picker some liquid Maalox or Mylanta and keep this with him. He does need to increase his fluid intake. He does have a very mild hepatitis as a result of the heat exhaustion. He does need to minimize alcohol intake for that reason for the next few weeks as well. He does need to have repeat lab work done and about 3 weeks to check on his liver again. He has been warned that he may not tolerate heat very well for the next few weeks while he is recovering from heat exhaustion. ER warnings were given. Follow-up with primary care doctor in a few weeks. He will be written for Zofran for as needed use to control vomiting.
[2018-11-24 16:54] VITALS: BP 139/84; TEMP 97.7; O2SAT 100
== END 2018-11-24 16:48 | disposition home or self-care (01) ==
LOC: ER 14:37
DX: T67.5XXA Heat exhaustion, unspecified, initial encounter (principal); E86.0 Dehydration; K29.00 Acute gastritis without bleeding; K75.9 Inflammatory liver disease, unspecified; Z87.891 Personal history of nicotine dependence
CPT/HCPCS: 36415; 80053; 82150; 82550; 82553; 83690; 83735; 84484; 85025; J7030

== ENCOUNTER 2019-04-14 00:46 | Emergency (ER) | payer SELFPAY ==
[2019-04-14] MEDS: HYDROcodone 7.5MG/APAP 325MG 1 EA TAB PO ONE (01:01)
[2019-04-14 01:05] VITALS: BP 143/87; TEMP 96.6; O2SAT 95
--- NOTE | 2019-04-14 01:26 | RAD ---
EXAM: XR Left Forearm, 2 Views CLINICAL HISTORY: The patient is 43 years old and is Male; blunt trauma distal 1/3 radius TECHNIQUE: Frontal and lateral views of the right forearm. COMPARISON: No relevant prior studies available. FINDINGS: BONES/JOINTS: Degenerative change of the radial head with associated spurring is noted. No acute fracture. No dislocation. SOFT TISSUES: Unremarkable. IMPRESSION: No acute findings in the right forearm. Electronically signed by: Tory Doss MD 04/14/2019 1:24 AM [employer]
--- NOTE | 2019-04-14 01:27 | ED.PDOC ---
History of Present Illness - General Chief Complaint: Upper Extremity Injury Stated Complaint: rt arm pain Time Seen by Provider: 04/14/19 00:51 Source: patient Exam Limitations: no limitations - History of Present Illness Initial Comments: the patient's a 43-year-old male presenting to the emergency room secondary to right distal third forearm pain secondary to blunt trauma while at work today. There is some bruising over the area. No obvious bony deformity. He is neurovascularly intact. Passive and active range of motion are preserved. No other injuries. No laceration. Timing/Duration: momentarily Severity: moderate Improving Factors: immobilization Worsening Factors: movement Associated Symptoms: denies symptoms Allergies/Adverse Reactions: Allergies NO KNOWN ALLERGY Allergy (Verified 07/27/18 11:23) Home Medications: Ambulatory Orders Waicmhjjsghik-Yeic-Wstvwzutao [Fioricet] 1 - 2 ea PO Q6HR PRN #20 tab 07/27/18 Ibuprofen 800 mg PO Q8HR PRN #30 tab 07/27/18 Meclizine HCl [Meclizine 25] 50 mg PO Q6HRS PRN #20 tab 07/27/18 Famotidine 20 mg PO DAILY #30 tab 11/24/18 Ondansetron Odt [Zofran ODT] 4 mg PO Q8HR PRN #5 tab 11/24/18 Sucralfate Tab [Carafate Tab] 1 gm PO QID #60 tab 11/24/18 Tramadol HCl 50 mg PO Q8HR PRN #20 tab 04/14/19 Review of Systems - Review of Systems Constitutional: States: no symptoms reported EENTM: States: no symptoms reported Respiratory: States: no symptoms reported Cardiology: States: no symptoms reported Gastrointestinal/Abdominal: States: no symptoms reported Genitourinary: States: no symptoms reported Musculoskeletal: States: see HPI Skin: States: no symptoms reported Neurological: States: no symptoms reported Endocrine: States: no symptoms reported All other Systems: No Change from Baseline Past Medical History (General) - Patient Medical History Hx Seizures: No Hx Stroke: No Hx Dementia: No Hx Asthma: No Hx of COPD: No Hx Cardiac Disorders: No Hx Congestive Heart Failure: No Hx Pacemaker: No Hx Hypertension: No Hx Thyroid Disease: No Hx Diabetes: No Hx Gastroesophageal Reflux: No Hx Renal Disease: No Hx Cancer: No Hx of HIV: No Hx Hepatitis C: No Hx MRSA: No MRSA Source:: Wound - Vaccination History Hx Tetanus, Diphtheria Vaccination: Yes Hx Influenza Vaccination: No Hx Pneumococcal Vaccination: No - Social History Hx Tobacco Use: Yes Hx Chewing Tobacco Use: Yes Hx Alcohol Use: Yes Hx Substance Use: No Hx Substance Use Treatment: No Hx Depression: No Hx Physical Abuse: No Hx Emotional Abuse: No Hx Suspected Abuse: No - Female History Patient : No Family Medical History - Family History Father Family History: No Known Living Status: Still Living Hx Family Asthma: No Hx Family Congestive Heart Failure: No Hx Family Hypertension: No Hx Cardiac Disease: Yes Hx Family Diabetes: Yes Physical Exam - Physical Exam General Appearance: Alert, No apparent distress Eye Exam: bilateral normal Ears, Nose, Throat: hearing grossly normal Neck: non-tender, supple Respiratory: no respiratory distress, no accessory muscle use Cardiovascular/Chest: normal peripheral pulses, no edema Peripheral Pulses: radial,right: 2+, radial,left: 2+ Rectal Exam: deferred Extremity: normal range of motion, no pedal edema, normal capillary refill, other - see history of present illness. 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 X-ray shows no evidence of any fracture or dislocation. This appears to be a soft tissue injury only. Will likely be sore for the patient for the next week or 2. Motrin can be used to help reduce inflammation he will also be written for a few days of tramadol for as needed use. He does need to do range of motion exercises to prevent stiffening and reduce pain. After today, topical heat may also help reduce symptoms. ER warnings were given. He is neurovascularly intact at this time. [email or web address] [id number] - Results/Orders Results/Orders: x-ray of the right forearm shows no evidence of any fracture or dislocation. There is some soft tissue swelling. Departure - Departure Clinical Impression: Contusion of forearm, right Qualifiers: Encounter type: initial encounter Qualified Code(s): S50.11XA - Contusion of right forearm, initial encounter Disposition: Discharge to Home or Self Care Condition: Fair Departure Forms: ED Discharge - Pt. Copy, Patient Portal Self Enrollment Diet: regular diet Activity: increase activity as tolerated Prescriptions: Tramadol HCl 50 mg PO Q8HR PRN #20 tab PRN Reason: Moderate Pain Home Medications: Ambulatory Orders Olmvhcpkgdvdc-Dqll-Jgufapzlfy [Fioricet] 1 - 2 ea PO Q6HR PRN #20 tab 07/27/18 Ibuprofen 800 mg PO Q8HR PRN #30 tab 07/27/18 Meclizine HCl [Meclizine 25] 50 mg PO Q6HRS PRN #20 tab 07/27/18 Famotidine 20 mg PO DAILY #30 tab 11/24/18 Ondansetron Odt [Zofran ODT] 4 mg PO Q8HR PRN #5 tab 11/24/18 Sucralfate Tab [Carafate Tab] 1 gm PO QID #60 tab 11/24/18 Tramadol HCl 50 mg PO Q8HR PRN #20 tab 04/14/19 Additional Instructions: the patient is a 43-year-old male presenting to the emergency room secondary to blunt trauma to the radial aspect of the distal third of the right forearm while at work today. X-ray shows no evidence of any fracture or dislocation. This appears to be a soft tissue injury only. Will likely be sore for the patient for the next week or 2. Motrin can be used to help reduce inflammation he will also be written for a few days of tramadol for as needed use. He does need to do range of motion exercises to prevent stiffening and reduce pain. After today, topical heat may also help reduce symptoms. ER warnings were given.
== END 2019-04-14 01:35 | disposition home or self-care (01) ==
LOC: ER 00:46
DX: S50.11XA Contusion of right forearm, initial encounter (principal); Z87.891 Personal history of nicotine dependence; X58.XXXA Exposure to other specified factors, initial encounter; Y99.0 Civilian activity done for income or pay; Y92.69 Other specified industrial and construction area as the place of occurrence of the external cause